=== PATIENT | male | born 1945 | race Caucasian/White ===

== ENCOUNTER 2022-10-14 15:30 | Inpatient (IN) | payer OTHER, MEDICARE ==
[2022-10-14] MEDS ORDERED: SODIUM CHLORIDE 0.9% 500 ML INFUS.BAG IV ONE ×2 (15:40→17:57)
[2022-10-14 16:36] LABS: VENOUS BASE EXCESS -9.5 mmol/L (-2-2); VENOUS O2 SATURATION 79.9 % (70-80); VENOUS PCO2 38.8 mmHg (38-52); VENOUS PH 7.257 (7.310-7.410)
[2022-10-14 16:39] LABS: BASO % 0.2 % (0-2.0); EOS % 0.7 % (0-4.5); HEMATOCRIT 30.5 % (35.4-49); HEMOGLOBIN 9.9 GM/dL (11.7-16.9); LYMPH % 10.1 % (8-40); MCH 29.2 pg (25.7-33.7); MCHC 32.3 g/dl (32.0-35.9); MEAN CELL VOLUME 90.2 fl (80-96); MEAN PLT VOLUME 8.4 fl (7.5-11.1); PLATELET COUNT 189 10^3/uL (134-434); RBC 3.38 M/mm3 (4.00-5.60); RDW 16.4 % (11.9-15.9); WHITE BLOOD COUNT 6.8 K/mm3 (4.0-10.0)
[2022-10-14 16:46] LABS: INR 2.15 (0.83-1.09); PROTHROMBIN TIME (PATIENT) 24.8 SEC (9.7-13.0)
[2022-10-14 16:48] LABS: ACTIVATED PTT 33.8 SECONDS (25.2-36.5)
[2022-10-14 17:19] LABS: LACTIC ACID 2.2 mmol/L (0.4-2.0)
[2022-10-14 17:21] LABS: CHLORIDE 115 mmol/L (98-107); SODIUM 143 mmol/L (136-145)
[2022-10-14 17:23] LABS: CALCIUM 8.1 mg/dL (8.5-10.1)
[2022-10-14 17:24] LABS: ALBUMIN 3.1 g/dl (3.4-5.0); ANION GAP 7 MMOL/L (8-16); BLOOD UREA NITROGEN 51.8 mg/dL (7-18); CO2 22 mmol/L (21-32); GLUCOSE,RANDOM 111 mg/dL (74-106); MAGNESIUM 2.1 mg/dL (1.8-2.4)
[2022-10-14 17:27] LABS: CREATININE 3.2 mg/dL (0.55-1.3); PHOSPHOROUS 3.5 mg/dL (2.5-4.9); SGOT/AST 18 U/L (15-37); SGPT/ALT 15 U/L (13-61)
[2022-10-14 17:28] LABS: BILIRUBIN,TOTAL 0.2 mg/dL (0.2-1)
[2022-10-14 17:29] LABS: ALK PHOS 581 U/L (45-117); N-TERMINAL BNP 158.2 pg/ml (5-450)
[2022-10-14] MEDS ORDERED: SODIUM CHLORIDE 1,000 ML IV SCH ×2 (20:30→21:45)
[2022-10-14] MEDS ORDERED: HEPARIN NA (PORCINE) 5,000 UNITS/ML 1ML VIAL SQ SCH (22:00)
[2022-10-14 22:07] LABS: IRON SERUM 45 ug/dL (50-175)
[2022-10-14 22:08] LABS: TOTAL IRON BINDING CAPACITY 200 ug/dL (250-450)
[2022-10-14 22:23] LABS: RETICULOCYTES 1.18 % (0.5-1.5)
[2022-10-15] MEDS: LEVOTHYROXINE NA 50 MCG TABLET (FP) PO SCH (07:01)
[2022-10-15 08:44] LABS: URINE APPEARANCE CLEAR; URINE BILIRUBIN NEGATIVE (NEGATIVE); URINE COLOR YELLOW; URINE GLUCOSE (UA) NEGATIVE (NEGATIVE); URINE KETONE NEGATIVE (NEGATIVE); URINE LEUK ESTERASE NEGATIVE (NEGATIVE); URINE NITRITE NEGATIVE (NEGATIVE); URINE PROTEIN TRACE (NEGATIVE); URINE UROBILINOGEN 0.2 mg/dL (0.2-1.0)
[2022-10-15 08:50] LABS: COCAINE, UR NEGATIVE (NEGATIVE); METHADONE, UR NEGATIVE (NEGATIVE); OPIATES, URI NEGATIVE (NEGATIVE); URINE AMPHETAMINES NEGATIVE (NEGATIVE); URINE BARBITURATES NEGATIVE (NEGATIVE)
[2022-10-15 08:51] VITALS: BMI 30.4
[2022-10-15 08:51] LABS: PHENCYCLIDINE,URINE NEGATIVE (NEGATIVE); URINE BENZODIAZEPINES NEGATIVE (NEGATIVE)
[2022-10-15 09:52] LABS: BASO % 0.4 % (0-2.0); EOS % 1.2 % (0-4.5); HEMATOCRIT 30.7 % (35.4-49); HEMOGLOBIN 10.1 GM/dL (11.7-16.9); LYMPH % 11.8 % (8-40); MCH 29.7 pg (25.7-33.7); MCHC 32.8 g/dl (32.0-35.9); MEAN CELL VOLUME 90.7 fl (80-96); MEAN PLT VOLUME 8.6 fl (7.5-11.1); MONO % 10.4 % (3.8-10.2); NEUT % 76.2 % (42.8-82.8); PLATELET COUNT 187 10^3/uL (134-434); RBC 3.38 M/mm3 (4.00-5.60); RDW 16.5 % (11.9-15.9); WHITE BLOOD COUNT 6.3 K/mm3 (4.0-10.0)
[2022-10-15 09:55] LABS: INR 2.29 (0.83-1.09); PROTHROMBIN TIME (PATIENT) 26.4 SEC (9.7-13.0)
[2022-10-15 10:10] LABS: POTASSIUM 5.1 mmol/L (3.5-5.1)
[2022-10-15 10:16] LABS: ALBUMIN 2.9 g/dl (3.4-5.0); CALCIUM 7.9 mg/dL (8.5-10.1); MAGNESIUM 2.3 mg/dL (1.8-2.4)
[2022-10-15 10:17] LABS: CREATININE 3.1 mg/dL (0.55-1.3); PHOSPHOROUS 4.5 mg/dL (2.5-4.9)
[2022-10-15 10:21] LABS: BILIRUBIN,TOTAL 0.2 mg/dL (0.2-1); TOT PROT 5.5 g/dl (6.4-8.2)
[2022-10-15] MEDS: ALLOPURINOL 100 MG TABLET (FP) PO SCH (10:30)
[2022-10-15] MEDS: TAMSULOSIN HCL 0.4 MG CAP PO SCH ×2 (10:30→21:24)
[2022-10-15 10:38] LABS: BLOOD UREA NITROGEN 48.7 mg/dL (7-18)
[2022-10-15] MEDS ORDERED: INSULIN (NOVOLOG) ASPART 100 UNITS/ML 10ML VIAL ONE (12:06)
[2022-10-15] MEDS: SODIUM CHLORIDE 1,000 ML IV SCH (18:13)
[2022-10-15] MEDS: WARFARIN NA 5 MG TABLET PO SCH (18:50)
[2022-10-15] MEDS: ATORVASTATIN CA 20 MG TABLET (FP) PO SCH (21:24)
[2022-10-16] MEDS: SODIUM CHLORIDE 1,000 ML IV SCH ×2 (04:14→11:07)
[2022-10-16 05:02] VITALS: RESP 18
[2022-10-16] MEDS: LEVOTHYROXINE NA 50 MCG TABLET (FP) PO SCH (06:04)
[2022-10-16 09:03] LABS: BASO % 0.3 % (0-2.0); EOS % 2.1 % (0-4.5); HEMATOCRIT 31.1 % (35.4-49); HEMOGLOBIN 9.9 GM/dL (11.7-16.9); LYMPH % 17.4 % (8-40); MCH 29.1 pg (25.7-33.7); MCHC 31.9 g/dl (32.0-35.9); MEAN CELL VOLUME 91.1 fl (80-96); MEAN PLT VOLUME 8.5 fl (7.5-11.1); MONO % 12.4 % (3.8-10.2); NEUT % 67.8 % (42.8-82.8); PLATELET COUNT 200 10^3/uL (134-434); RBC 3.41 M/mm3 (4.00-5.60); RDW 16.8 % (11.9-15.9)
[2022-10-16 09:32] LABS: POTASSIUM 4.9 mmol/L (3.5-5.1)
[2022-10-16 09:37] LABS: BLOOD UREA NITROGEN 47.4 mg/dL (7-18); MAGNESIUM 2.1 mg/dL (1.8-2.4)
[2022-10-16 09:38] LABS: ALBUMIN 2.9 g/dl (3.4-5.0)
[2022-10-16 09:42] LABS: BILIRUBIN,TOTAL 0.5 mg/dL (0.2-1); TOT PROT 5.6 g/dl (6.4-8.2)
[2022-10-16 09:47] LABS: INR 2.26 (0.83-1.09)
[2022-10-16] MEDS ORDERED: LACTOBACILLUS ACIDOPHILUS 1 TABLET PO ONE (09:55)
[2022-10-16] MEDS: GABAPENTIN 300 MG CAPSULE PO SCH ×2 (10:58→21:47)
[2022-10-16] MEDS: ALLOPURINOL 100 MG TABLET (FP) PO SCH (10:58)
[2022-10-16] MEDS: TAMSULOSIN HCL 0.4 MG CAP PO SCH ×2 (10:58→19:39)
[2022-10-16] MEDS: WARFARIN NA 5 MG TABLET PO SCH (19:39)
[2022-10-16] MEDS: ATORVASTATIN CA 20 MG TABLET (FP) PO SCH (21:47)
[2022-10-17] MEDS: LEVOTHYROXINE NA 50 MCG TABLET (FP) PO SCH (06:25)
[2022-10-17] MEDS: TAMSULOSIN HCL 0.4 MG CAP PO SCH (09:10)
[2022-10-17] MEDS: ALLOPURINOL 100 MG TABLET (FP) PO SCH (09:10)
[2022-10-17] MEDS: GABAPENTIN 300 MG CAPSULE PO SCH (09:10)
[2022-10-17 11:40] LABS: BASO % 0.4 % (0-2.0); EOS % 2.9 % (0-4.5); HEMATOCRIT 29.2 % (35.4-49); HEMOGLOBIN 9.7 GM/dL (11.7-16.9); LYMPH % 19.4 % (8-40); MCH 29.7 pg (25.7-33.7); MCHC 33.1 g/dl (32.0-35.9); MEAN CELL VOLUME 89.7 fl (80-96); MEAN PLT VOLUME 8.3 fl (7.5-11.1); MONO % 15.4 % (3.8-10.2); NEUT % 61.9 % (42.8-82.8); PLATELET COUNT 173 10^3/uL (134-434); RBC 3.25 M/mm3 (4.00-5.60); WHITE BLOOD COUNT 4.9 K/mm3 (4.0-10.0)
[2022-10-17 11:41] LABS: INR 2.27 (0.83-1.09); PROTHROMBIN TIME (PATIENT) 26.1 SEC (9.7-13.0)
[2022-10-17 12:02] LABS: POTASSIUM 4.8 mmol/L (3.5-5.1)
[2022-10-17 12:05] LABS: ALBUMIN 2.7 g/dl (3.4-5.0); BLOOD UREA NITROGEN 45.2 mg/dL (7-18); CALCIUM 8.2 mg/dL (8.5-10.1); MAGNESIUM 2.1 mg/dL (1.8-2.4)
[2022-10-17 12:08] LABS: CREATININE 2.7 mg/dL (0.55-1.3)
[2022-10-17 12:10] LABS: BILIRUBIN,TOTAL 0.3 mg/dL (0.2-1); TOT PROT 5.4 g/dl (6.4-8.2)
[2022-10-17 15:31] VITALS: BP 126/65; PULSE 71; TEMP 98
== END 2022-10-17 17:20 | disposition home or self-care (01) | DRG 93 ==
LOC: JER 15:30 → JERBED 19:49 → OBSVTOIN 20:24 → J8W 10-15 04:59
PROVIDERS: ADMIT Internal Medicine; ATTEND Nurse Practitioner Family
DX: G92.8 Other toxic encephalopathy (principal); E78.5 Hyperlipidemia, unspecified; M10.9 Gout, unspecified; N40.0 Benign prostatic hyperplasia without lower urinary tract symptoms; I95.9 Hypotension, unspecified; I44.0 Atrioventricular block, first degree; I45.10 Unspecified right bundle-branch block; E03.9 Hypothyroidism, unspecified; K42.9 Umbilical hernia without obstruction or gangrene; I12.9 Hypertensive chronic kidney disease with stage 1 through stage 4 chronic kidney disease, or unspecified chronic kidney disease; N18.9 Chronic kidney disease, unspecified; G62.9 Polyneuropathy, unspecified; T43.595A Adverse effect of other antipsychotics and neuroleptics, initial encounter; Z79.01 Long term (current) use of anticoagulants
CPT/HCPCS: 36415; 70450-TC; 71045-TC-FY; 76775-TC; 80053; 80307; 81003; 82436; 82550; 82570; 82728; 82803; 82962; 83540; 83550; 83605; 83735; 83880; 83935; 84100; 84133; 84300; 84484; 85025; 85045; 85610; 85730; 86850; 86900; 86901; 87086; 93005; 93010; 97116-GP; 99291; G0378